=== PATIENT | female | born 1950 | race Caucasian/White ===

== ENCOUNTER → 2016-11-13 | Outpatient (CLI) | payer BC, MEDICARE ==
[~2016-11-13] MED LIST: AMIT10TA PO; ASCO10004 PO; CALC-545 PO; CALC1TAB62 PO; CHOL20003 PO; LOSA100T6 PO; LOSA25TA5 PO; LOSA50TA6 PO; MAGN400T36 PO; MULT-208 PO; RED600CA2 PO; SERT25TA3 PO; VITA150T PO
== END | disposition home or self-care (01) ==
LOC: CFH 13:38
PROVIDERS: ATTEND Internal Medicine Cardiovascular Disease
DX: I11.0 Hypertensive heart disease with heart failure (principal); I50.30 Unspecified diastolic (congestive) heart failure; I08.3 Combined rheumatic disorders of mitral, aortic and tricuspid valves; I37.1 Nonrheumatic pulmonary valve insufficiency; I70.0 Atherosclerosis of aorta
CPT/HCPCS: 93306

== ENCOUNTER 2020-05-28 15:45 | Observation (INO) | payer BC, MEDICARE ==
[~2020-05-28] VITALS: Ht 157.5 cm; Wt 61.0 kg
[~2020-05-28 15:45] MED LIST changes: +ASCO100018 PO; -ASCO10004 PO; +CHOL2000 PO; -CHOL20003 PO; +LOSA100T14 PO; -LOSA100T6 PO; +LOSA25TA25 PO; -LOSA25TA5 PO; +LOSA50TA14 PO; -LOSA50TA6 PO
[2020-05-28 16:06] LABS: BASOPHILS % (AUTO) 0 % (0-1); EOSINOPHILS % (AUTO) 0 % (1-7); LYMPHOCYTES % (AUTO) 3 % (22-44); MEAN CORPUSCULAR HGB CONC 33.1 g/dL (32.4-35.8); MEAN PLATELET VOLUME 6.6 fL (7.4-10.4); MONOCYTES % (AUTO) 3 % (2-9); NEUTROPHILS % (AUTO) 94 % (42-75); PLATELET COUNT 231 x10^3/uL (130-400); RED BLOOD COUNT 4.09 x10^6/uL (3.82-5.3); RED CELL DISTRIBUTION WIDTH 12.7 % (9.6-15.2)
[2020-05-28 16:18] LABS: ALANINE AMINOTRANSFERASE 19 U/L (12-78); ALBUMIN 3.3 g/dL (3.4-5.0); ANION GAP 8 mmol/L (5-15); CALCIUM 8.2 mg/dL (8.5-10.1); CHLORIDE 100 mmol/L (98-107); CREATININE 0.89 mg/dL (0.55-1.02)
[2020-05-28 16:20] LABS: ALKALINE PHOSPHATASE 90 U/L (45-117); BILIRUBIN,TOTAL 0.4 mg/dL (0.2-1.0); TOTAL PROTEIN 6.3 g/dL (6.4-8.2)
[2020-05-28] MEDS ORDERED: MORPHINE SULFATE 4 MG/ML, 1ML IVPush PRN (16:30)
[2020-05-28] MEDS ORDERED: SODIUM CHLORIDE FLUSH 10ML SYR IVF ONE (16:30)
--- NOTE | 2020-05-28 16:31 | NUR ---
bladder scan of 490ml. Patient with no urge to void. Poc discussed with provider: To place freire/admit Right hip island dressing cdi. cms intact distally
[2020-05-28 16:43] LABS: MD SCAN
--- NOTE | 2020-05-28 16:47 | NUR ---
16 f freire catheter placed with Irvin RN as data assistant Patient tolerated well
[2020-05-28] MEDS ORDERED: OXYcodone/APAP 5/325MG TABLET ONE (16:51)
[2020-05-28] MEDS ORDERED: ONDANSETRON ODT 4 MG ONE (16:51)
--- NOTE | 2020-05-28 16:59 | NUR ---
Medicated per emar for right hip pain at 8/10 (po percocet and zofran) Provided with dinner tray
[2020-05-28] MEDS ORDERED: ONDANSETRON ODT 4 MG PO ONE (17:00)
[2020-05-28] MEDS ORDERED: OXYcodone/APAP 5/325MG TABLET PO ONE (17:00)
--- NOTE | 2020-05-28 17:59 | NUR ---
pain improved to 2/10 450ml of clear/yellow urine drained from freire thus far
[2020-05-28] MEDS ORDERED: morphine SULFATE 10 MG/ML, 1ML IVPush PRN (20:00)
[2020-05-28] MEDS ORDERED: MELATONIN 5 MG TABLET PO PRN (20:00)
[2020-05-28] MEDS ORDERED: ACETAMINOPHEN 325 MG TABLET PO PRN (20:00)
[2020-05-28] MEDS ORDERED: ONDANSETRON ODT 4 MG PO PRN (20:00)
[2020-05-28] MEDS ORDERED: ENALAPRILAT 1.25 MG/ML, 2ML IVPush PRN (20:00)
[2020-05-28] MEDS ORDERED: LIDODERM 5% PATCH TD PRN (20:00)
[2020-05-28 21:00] VITALS: BP 125/64
[2020-05-28] MEDS: INSULIN LISPRO 100 UNITS/ML, PEN SQ-INSULIN SCH (21:00)
[2020-05-28] MEDS: OXYcodone/APAP 5/325MG TABLET PO PRN (22:23)
[2020-05-29] MEDS: AMITRIPTYLINE 10 MG TABLET PO SCH ×2 (00:21→20:24)
[2020-05-29 00:31] VITALS: BP 120/70
[2020-05-29] MEDS: OXYcodone/APAP 5/325MG TABLET PO PRN ×6 (03:38→23:23)
[2020-05-29 03:40] VITALS: BP 126/62
[2020-05-29] MEDS: INSULIN LISPRO 100 UNITS/ML, PEN SQ-INSULIN SCH ×4 (06:32→20:19)
[2020-05-29 07:20] VITALS: BP 111/61
[2020-05-29] MEDS: ASPIRIN 81 MG TABLET CHEW PO SCH ×2 (08:20→20:24)
[2020-05-29] MEDS: SENNA/DOCUSATE TABLET PO SCH ×2 (08:21→14:14)
[2020-05-29 12:51] VITALS: BP 119/65
[2020-05-29] MEDS ORDERED: ASPI-515 PO (17:03)
[2020-05-29 18:52] VITALS: BP 108/66
[2020-05-30 01:43] VITALS: BP 115/70
[2020-05-30] MEDS: OXYcodone/APAP 5/325MG TABLET PO PRN ×3 (04:35→16:15)
[2020-05-30 07:00] VITALS: BP 115/72
[2020-05-30] MEDS: INSULIN LISPRO 100 UNITS/ML, PEN SQ-INSULIN SCH ×3 (07:00→16:00)
[2020-05-30] MEDS: SENNA/DOCUSATE TABLET PO SCH (08:19)
[2020-05-30] MEDS: ASPIRIN 81 MG TABLET CHEW PO SCH (08:20)
[2020-05-30 13:50] VITALS: BP 107/65
== END 2020-05-30 17:58 | disposition home or self-care (01) ==
LOC: ED 18:30 → EDIP 19:35 → INTOOBSV 19:35 → 4NE 21:45
PROVIDERS: ADMIT Family Medicine; ATTEND Internal Medicine
DX: I95.81 Postprocedural hypotension (principal); R73.9 Hyperglycemia, unspecified; E87.1 Hypo-osmolality and hyponatremia; I10 Essential (primary) hypertension; G47.00 Insomnia, unspecified; E78.00 Pure hypercholesterolemia, unspecified; G89.18 Other acute postprocedural pain; M81.0 Age-related osteoporosis without current pathological fracture; Z88.0 Allergy status to penicillin; Z96.641 Presence of right artificial hip joint; Z79.82 Long term (current) use of aspirin; Z79.899 Other long term (current) drug therapy
CPT/HCPCS: 36415; 80053; 82962; 85025; 97110; 97116; 97161; 97165; 97530; 97535; 99285; G0378; Q0162